=== PATIENT | male | born 1950 | race Two or more races ===

== ENCOUNTER 2024-08-23 11:35 | Emergency (ER) | payer OTHER, BC ==
[~2024-08-23] VITALS: Ht 172.7 cm; Wt 81.6 kg
[2024-08-23] MEDS ORDERED: TETANUS & DIPHTHERIA TOX,ADULT 0.5 ML VIAL IM ONE (13:00)
[2024-08-23] MEDS ORDERED: LIDOCAINE HCL 1% 10ML VIAL IJ ONE (13:00)
[2024-08-23] MEDS ORDERED: CLINDAMYCIN PHOSPHATE 150 MG/ML (600mg) IM ONE (13:00)
[2024-08-23] MEDS ORDERED: CLINDAMYCIN PHOSPHATE 150 MG/ML (300mg) ONE (13:16)
[2024-08-23] MEDS ORDERED: DIPHTH,PERTUSS(ACELL),TET VAC 0.5 ML SYRINGE IM ONE (13:16)
[2024-08-23] MEDS ORDERED: LIDOCAINE HCL 1% 10ML VIAL ONE (13:17)
== END 2024-08-23 14:13 | disposition home or self-care (01) ==
LOC: ER 11:36
DX: G89.11 Acute pain due to trauma (principal); R51.9 Headache, unspecified; E11.9 Type 2 diabetes mellitus without complications
CPT/HCPCS: 90471; 90714; 96372; 99282; J1670; J3490